=== PATIENT | male | born 1950 | race Caucasian/White ===

== ENCOUNTER 2017-03-21 13:18 | Outpatient (CLI) | payer MEDICARE, OTHER ==
[~2017-03-21] VITALS: Ht 190.5 cm; Wt 105.3 kg
[2017-03-21] MEDS ORDERED: EZET10TA5 PO (13:35)
[2017-03-21] MEDS ORDERED: ASPI-933 PO (13:35)
[2017-03-21] MEDS ORDERED: LOSA50TA36 PO (13:35)
[2017-03-21] MEDS ORDERED: SPIR25TA3 PO (13:35)
[2017-03-21] MEDS ORDERED: FURO20TA4 PO (13:35)
[2017-03-21] MEDS ORDERED: FENO160T12 PO (13:35)
[2017-03-21] MEDS ORDERED: RANI150T90 PO (13:35)
[2017-03-21] MEDS ORDERED: ALLO100T PO (13:35)
[2017-03-21] MEDS ORDERED: CARV25TA PO (13:35)
[2017-03-21] MEDS ORDERED: COLE625T9 PO (13:35)
[2017-03-21] MEDS ORDERED: WARF-48 PO (13:35)
[2017-03-21] MEDS ORDERED: WARF2.5T82 PO (13:35)
[2017-03-21 13:41] VITALS: BP 139/71
[2017-03-21 14:18] LABS: BASOPHILS % (AUTO) 1 % (0-10); EOSINOPHILS # (AUTO) 0.2 10^3/uL (0.0-0.3); EOSINOPHILS % (AUTO) 3 % (0-10); LYMPHOCYTES # (AUTO) 1.5 X 10^3 (1.0-4.0); LYMPHOCYTES % (AUTO) 23 % (12-44); MEAN CORPUSCULAR HEMOGLOBIN 30 PG (25-34); MEAN CORPUSCULAR HGB CONC 33 G/DL (32-36); MEAN CORPUSCULAR VOLUME 90 FL (80-99); MONOCYTES % (AUTO) 16 % (0-12); NEUTROPHILS # (AUTO) 3.8 X 10^3 (1.8-7.8); NEUTROPHILS % (AUTO) 58 % (42-75); PLATELET COUNT 192 10^3/uL (130-400); RED BLOOD COUNT 4.89 10^6/uL (4.35-5.85); WHITE BLOOD COUNT 6.6 10^3/uL (4.3-11.0)
[2017-03-21 14:36] LABS: ANION GAP 11 MMOL/L (5-14); BLOOD UREA NITROGEN 22 MG/DL (7-18); BUN/CREATININE RATIO 21; CALCIUM 9.4 MG/DL (8.5-10.1); CARBON DIOXIDE 22 MMOL/L (21-32); CHLORIDE 107 MMOL/L (98-107); CREATININE SERUM 1.04 MG/DL (0.60-1.30); GFR ESTIMATED > 60; GLUCOSE 110 MG/DL (70-105); SODIUM 140 MMOL/L (135-145)
[2017-03-28] MEDS ORDERED: HYDR-3812 PO (10:38)
== END 2017-03-21 16:00 ==
LOC: PREOP 13:18 → EDUNIT# 13:45 → PREOP 16:00
PROVIDERS: ATTEND Surgery
DX: Z01.812 Encounter for preprocedural laboratory examination (principal); Z11.2 Encounter for screening for other bacterial diseases; K40.90 Unilateral inguinal hernia, without obstruction or gangrene, not specified as recurrent
CPT/HCPCS: 36415; 80048; 85025; 87081

== ENCOUNTER 2017-03-28 06:00 | Day surgery (SDC) | payer MEDICARE, OTHER ==
[~2017-03-28] VITALS: Ht 190.5 cm; Wt 105.3 kg
[2017-03-28] VITALS (14 sets, daily range): BP systolic 95–142; BP diastolic 60–94
[~2017-03-28 06:00] MED LIST: ALLO100T PO; ASPI-933 PO; CARV25TA PO; COLE625T9 PO; EZET10TA5 PO; FENO160T12 PO; FURO20TA4 PO; LOSA50TA36 PO; RANI150T90 PO; SPIR25TA3 PO; WARF-48 PO; WARF2.5T82 PO
[2017-03-28] MEDS ORDERED: ceFAZolin 2 GM/50 ML NS 50 ML ONE (06:30)
[2017-03-28] MEDS ORDERED: ENOX100D9 SQ (06:45)
[2017-03-28] MEDS ORDERED: FAMOTIDINE 20MG/2ML IV (PEPCID) ONE (06:54)
[2017-03-28] MEDS ORDERED: ceFAZolin 2 GM/NS 50 ML IV ONE (07:00)
[2017-03-28] MEDS ORDERED: FAMOTIDINE 20MG/2ML IV (PEPCID) IV ONE (07:00)
[2017-03-28] MEDS: LACTATED RINGERS 1,000 ML IV PRN ×2 (07:00→09:10)
[2017-03-28] MEDS ORDERED: LACTATED RINGERS 1,000 ML IV ONE ×2 (07:05→10:25)
[2017-03-28] MEDS ORDERED: MIDAZOLAM 2 MG/2 ML (VERSED) VIAL ONE (07:05)
[2017-03-28] MEDS ORDERED: ROCURONIUM 50 MG/5 ML (ZEMURON) VIAL IV ONE (07:05)
[2017-03-28] MEDS ORDERED: proPOfol 200 MG/20 ML (DIPRIVAN) VIAL IV ONE (07:05)
[2017-03-28] MEDS ORDERED: LIDOCAINE PF 2% 10 ML (XYLOCAINE) AMP ONE (07:05)
[2017-03-28] MEDS ORDERED: fentaNYL INJECTION 100 MCG/2 ML AMP ONE ×2 (07:05→10:24)
[2017-03-28] MEDS ORDERED: SEVOFLURANE (ULTANE) 15 ML INHAL SOLN ONE ×6 (07:05→10:25)
[2017-03-28 07:17] LABS: INR 1.2 (0.8-1.4); PROTHROMBIN TIME PATIENT 14.5 SEC (12.2-14.7)
[2017-03-28] MEDS ORDERED: BUP/EPI 0.25% 1:200,000 (MARCAINE) 30 ML VIAL ONE (07:34)
--- NOTE | 2017-03-28 08:29 | Progress Note-Pre Operative ---
Pre-Operative Progress Note H&P Reviewed The H&P was reviewed, patient examined and no changes noted. Date H&P Reviewed: March 28, 2017 Time H&P Reviewed: 08:29 Pre-Operative Diagnosis: Left Inguinal Hernia MARIA DE JESUS PACHECO MD March 28, 2017 8:29 am
[2017-03-28] MEDS ORDERED: morphine INJ 10 MG/ML 1ML (SYR OR VIAL) ONE (10:04)
[2017-03-28] MEDS: morphine INJ 10 MG/ML 1ML (SYR OR VIAL) IVP PRN ×2 (10:06→11:06)
--- NOTE | 2017-03-28 10:33 | Progress Note-Post Operative ---
Post-Operative Progess Note Surgeon (s)/Clinical Program Coordinator (s) Surgeon MARIA DE JESUS PACHECO MD Clinical Program Coordinator: Adilene Pre-Operative Diagnosis Left Inguinal Hernia Post-Operative Diagnosis same Post-Op Procedure Note Date of Procedure: March 28, 2017 Name of Procedure Performed: robotic-assisted repair with mesh Description of the Procedure: see operative report Findings of the Procedure see operative report Anesthesia Type Gen. Estimated blood loss (mL): minimal Specimen(s) collected/removed hernia contents MARIA DE JESUS PACHECO MD March 28, 2017 10:33 am
[2017-03-28] MEDS ORDERED: HYDR-3812 PO (10:38)
--- NOTE | 2017-03-28 10:39 | Discharge Inst-Simple/Standard ---
Discharge Inst-Standard Discharge Medications New, Converted or Re-Newed RX: RX on Chart Patient Instructions/Follow Up Plan of Care/Instructions/FU: ddressing off in a.m. Follow-up in 3 weeks Activity as Tolerated: No Goal: no lifting over 10 pounds Discharge Diet: No Restrictions MARIA DE JESUS PACHECO MD March 28, 2017 10:38 am
[2017-03-28] MEDS ORDERED: PATIENT MAY USE OWN MEDS, ALL PO SCH (10:45)
[2017-03-28] MEDS ORDERED: fentaNYL INJECTION 100 MCG/2 ML AMP IVP PRN (10:45)
[2017-03-28] MEDS ORDERED: ONDANSETRON 4 MG/2 ML (SDV) Z0FRAN IVP PRN ×2 (10:45)
[2017-03-28] MEDS ORDERED: MEPERIDINE (DEMEROL) INJ 50 MG/ML IVP PRN (10:45)
[2017-03-28] MEDS ORDERED: HYDROcodone/APAP 5 MG/325 MG (LORTAB) TAB PO PRN (10:45)
[2017-03-28] MEDS ORDERED: fentaNYL INJECTION 100 MCG/2 ML AMP IV PRN (10:45)
[2017-03-28] MEDS: LACTATED RINGERS 1,000 ML IV SCH (15:50)
[2017-03-28] MEDS ORDERED: warFARin 5 MG (COUMADIN) TAB PO SCH (18:00)
[2017-03-28] MEDS: CARVEDILOL 12.5 MG (COREG) TABLET PO SCH ×2 (18:27→21:49)
[2017-03-28] MEDS ORDERED: COLESEVELAM HCL 1875 MG PO SCH (21:00)
[2017-03-28] MEDS: ENOXAPARIN 100 MG/1 ML (LOVENOX) SYR SC SCH (21:00)
[2017-03-28] MEDS ORDERED: FENOFIBRATE 134 MG (LOFIBRA) CAPSULE PO SCH (21:00)
[2017-03-28] MEDS: FAMOTIDINE 20 MG (PEPCID) TABLET PO SCH (21:49)
[2017-03-28] MEDS: ALLOPURINOL 100 MG (ZYLOPRIM) TAB PO SCH (21:50)
[2017-03-29] VITALS: BP 115/68
[2017-03-29 02:00] VITALS: BP 99/50
[2017-03-29 03:00] VITALS: BP 97/63
[2017-03-29] MEDS: LACTATED RINGERS 1,000 ML IV SCH (03:23)
--- NOTE | 2017-03-29 03:35 | OPERATIVE REPORT ---
DATE OF SERVICE: 03/28/2017 PREOPERATIVE DIAGNOSIS: Left inguinal hernia. POSTOPERATIVE DIAGNOSIS: Left inguinal hernia. OPERATION: Robotic assisted repair of left inguinal hernia with mesh. SURGEON: Fadi Pacheco MD ANESTHESIA: General anesthesia. BLOOD LOSS: Minimal. FLUIDS: 1300 mL of crystalloid, type 1 (clean wound). INDICATION OF PROCEDURE: This gentleman presented with a symptomatic left inguinal hernia. Following clearance by his training administrator, he was offered minimal invasive repair with robotic assistance and mesh reinforcement. Due to cardiomyopathy with reduced ejection fraction, his anticoagulation was maintained using low molecular weight heparin (Lovenox) during the perioperative period. Increased risk of ecchymosis and bleeding due to this fact was highlighted. With regard to the operative procedure itself, complications of hematoma, infection of the mesh and recurrence were discussed with him. Informed consent was obtained. DESCRIPTION OF PROCEDURE: He was placed supine on the operating room table and general anesthesia induced using an endotracheal tube. Two grams of Ancef were administered intravenously as prophylaxis against a wound infection. Sequential compression devices were placed around his legs to minimize the risk of venous thrombosis. A Kaur catheter was placed to decompress the bladder during surgery. It was removed at the end of the operation. His abdomen was prepped and draped in the usual sterile manner. Pneumoperitoneum was established using a Veress needle introduced over the supraumbilical region. Intraabdominal pressure was maintained at 15 mmHg, using carbon dioxide insufflation A 12 mm trocar was placed and anatomy was visualized using the high definition, 3-dimensional laparoscope associated with a Da Adnrew system. An indirect left inguinal hernia was confirmed. There was no hernia on the contralateral side. Under direct view, I placed an 8 mm cannula over each side of the abdomen and the patient was turned on steep Trendelenburg position, to displace loops of bowel out of the pelvis. The robotic system was then docked in place. Peritoneum was incised laterally, extending across the midline using the robotic scissors. Pre-peritoneal space was entered and dissection continued, delineating Farhat's ligament. Inferior epigastric artery was kept out of harms way. A large indirect hernia containing extraperitoneal fat and sigmoid colon was encountered. Both were reduced out of the hernia sac uneventfully. The defect was rather large, and therefore, gently approximated using a 2-0 V-Loc suture without constricting the cord structures. A pre-made polypropylene mesh measuring 10 cm x 16 cm was used for reinforcement. The mesh was secured to Farhat's ligament and the lateral abdominal musculature with 2-0 Vicryl sutures with robotic assistance. Intraabdominal pressure was then reduced to 12 mmHg to close the peritoneum without any tension. This was achieved using 2-0 V-Loc sutures uneventfully. Hemostasis was satisfactory. Redundant extraperitoneal fat (cord lipoma) was removed at the end of the operation and sent for gross histological examination. The fascia over the supraumbilical incision was closed using #1 Vicryl. Skin incisions were closed using 4-0 Vicryl in a subcuticular fashion. A 0.25% Marcaine with epinephrine was infiltrated along the incisions, both pre- emptively and at the conclusion of the operation. He tolerated the procedure well, was extubated in the operating room and taken to the recovery room in a stable condition. [place], sponges and instruments were correct at the end of the operation. Job ID: [id number] DocumentID: [id number] Dictated Date: 03/28/2017 10:28:33 Manager [employer] Date: 03/29/2017 00:23:23 Dictated By: FADI PACHECO MD [email or web address]
[2017-03-29 04:00] VITALS: BP 112/68
[2017-03-29 05:00] VITALS: BP 112/64
[2017-03-29] MEDS ORDERED: ENOXAPARIN 100 MG/1 ML (LOVENOX) SYR SC SCH (06:00)
[2017-03-29] MEDS: ENOXAPARIN 100 MG/1 ML (LOVENOX) SYR SC SCH (07:40)
[2017-03-29 08:00] VITALS: BP 118/71
[2017-03-29] MEDS ORDERED: FUROSEMIDE 20 MG (LASIX) TAB PO SCH (09:00)
[2017-03-29] MEDS ORDERED: ASPIRIN E.C. 81 MG (ECOTRIN) TAB PO SCH (09:00)
[2017-03-29] MEDS ORDERED: eZETimibe 10 MG (ZETIA) TABLET PO SCH (09:00)
[2017-03-29] MEDS ORDERED: LOSARTAN 50 MG (COZAAR) TAB PO SCH (09:00)
[2017-03-29] MEDS ORDERED: SPIRONOLACTONE 25 MG (ALDACTONE) TAB PO SCH (09:00)
[2017-03-29] MEDS: CARVEDILOL 12.5 MG (COREG) TABLET PO SCH (11:24)
[2017-03-29] MEDS: FAMOTIDINE 20 MG (PEPCID) TABLET PO SCH (11:26)
[2017-03-29] MEDS: ALLOPURINOL 100 MG (ZYLOPRIM) TAB PO SCH (11:26)
--- NOTE | 2017-03-29 15:46 | Progress Note-Standard ---
Standard Progress Note Progress Notes/Assess & Plan Progress/Assessment & Plan 03/29/17: Seen earlier this morning. Doing well. Could be discharged. We'll continue Lovenox until Coumadin therapeutic. Final Diagnosis Left inguinal hernia. Ischemic heart disease. Cardiomyopathy. MARIA DE JESUS PACHECO MD March 29, 2017 15:46
[2017-03-29] MEDS ORDERED: warFARin 5 MG (COUMADIN) TAB PO SCH (18:00)
== END 2017-03-29 10:30 | disposition home or self-care (01) ==
LOC: SDC 06:00 → ICU 11:45 → ENPENDDIS 03-29 10:00 → SDC 03-29 10:30
PROVIDERS: ATTEND Surgery
DX: K40.90 Unilateral inguinal hernia, without obstruction or gangrene, not specified as recurrent (principal); I25.5 Ischemic cardiomyopathy; Z79.01 Long term (current) use of anticoagulants; I25.2 Old myocardial infarction; I10 Essential (primary) hypertension; E78.5 Hyperlipidemia, unspecified; M10.9 Gout, unspecified; Z95.0 Presence of cardiac pacemaker; Z87.891 Personal history of nicotine dependence; Z79.899 Other long term (current) drug therapy; Z95.5 Presence of coronary angioplasty implant and graft
CPT/HCPCS: 36415; 85610; 85730; 88302; 94664